=== PATIENT | female | born 1965 | race Caucasian/White ===

== ENCOUNTER → 2020-10-09 | Outpatient (CLI) | payer BC | END | disposition home or self-care (01) | LOC: SHCH 09:59 | PROVIDERS: ATTEND Internal Medicine Cardiovascular Disease | DX: I48.0 Paroxysmal atrial fibrillation (principal) | CPT/HCPCS: 93306; 93356 ==

== ENCOUNTER → 2022-06-10 | Outpatient (CLI) | payer BC ==
[~2022-06-10] MED LIST: REGADENOSON 0.4 MG/5 ML PF SYG IVP SCH
== END | disposition home or self-care (01) ==
LOC: SHCH 08:44
PROVIDERS: ATTEND Internal Medicine Cardiovascular Disease
DX: I48.0 Paroxysmal atrial fibrillation (principal); R00.2 Palpitations
CPT/HCPCS: 78452; 96374; 93017; J2785; A9500 ×2